=== PATIENT | female | born 1955 | race Caucasian/White ===

== ENCOUNTER 2023-10-30 22:45 | Emergency (ER) | payer MEDICARE, OTHER, SELFPAY ==
[2023-10-30 22:46] VITALS: BP 140/75; PULSE 54; RESP 18; TEMP 36.4; O2SAT 97; BMI 27.9
--- NOTE | 2023-10-30 23:07 | EDS_ITS ---
HPI History of Present Illness Chief Complaint: Wound Check Informant: patient Narrative Narrative: 67-year-old female states she is having mild bleeding from her right nipple, it has been going on all day today and will not stop. She is on no blood thinners. She states this happened a couple weeks ago and stopped on its own and now it is recurrent. The nipple itself is a little sore but she has no pain elsewhere or redness or systemic symptoms or fevers. No history of breast cancer that she knows of. Gets by annual mammogram the last one was in March 2022. 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 She already made an appointment with her drafter automotive design layout to be seen after the weekend. PFSH PFSH Home Medications ?Medication ?Instructions ?Recorded ?Last Taken ?Type aspirin 81 mg capsule 81 mg PO DAILY 10/30/23 Unknown History cholecalciferol (vitamin D3) 25 1,000 unit PO DAILY 10/30/23 Unknown History mcg (1,000 unit) capsule (Vitamin D3) Allergy/AdvReac Type Severity Reaction Status Date / Time No Known Allergies Allergy Verified 10/30/23 22:48 Surgical History History of appendectomy History of cholecystectomy Social History Smoking Status: Former smoker ROS ROS ED Constitutional Constitutional ED: Denies chills or fever(s) Respiratory/Chest Respiratory/Chest: Denies dyspnea Genitourinary Genitourinary ED: Reports other Details: See HPI. Bleeding and soreness from right nipple. No other breast symptoms. Nothing on the left. Integumentary Denies abscess or rash EXAM Physical Exam Const Vital Signs: 10/30/23 22:46 Temperature 97.5 F L Temperature Source Temporal Pulse Rate 54 L Respiratory Rate 18 Blood Pressure 140/75 H Blood Pressure Mean 96 Pulse Ox 97 Oxygen Delivery Method Room Air Positive well nourished and well developed General Appearance ED: well developed and NAD HEENT Reports moist mucous membranes Eyes PERRL and EOMs intact bilaterally Chest Wall Chest Narrative: Examined with nurse development scientist. Right breast is normal-appearing except for small amount of blood present from a pinpoint sized normal area in the right nipple, assuming it is coming from a duct. Subjectively sore to examine at the nipple only but otherwise normal-appearing. Normal areola without tenderness or rash or erythema. Normal rest of the breast without any erythema, induration, peau d'orange appearance, or other skin abnormalities. No palpable lumps or masses throughout the breast. No other areas of tenderness. No palpable axillary lymphadenopathy. Extremity normal to inspection Neuro oriented x3, CN's II-XII intact bilaterally, no sensory deficits noted and gait normal Motor Exam: strength 5/5 throughout Psych mental status grossly normal Skin no rashes or lesions noted Skin Narrative: Including right breast; no lesions or rashes or signs of erythema. MDM MDM MDM Narrative Medical decision making narrative: There is no evidence of mastitis here clinically. It looks like the bleeding is coming from the duct and the nipple. I discussed with the patient I do not think there is infection which was her primary concern here. She understands the possibility of a cyst or mass or cancer within the breast that could be causing bleeding into the mammary duct system which I suspect is why it is trickling blood today and does not want to stop. She is not having any dangerous bleeding. She shows me some tissues that is just dotted with small amount of blood that she was using. I do not feel any lumps or masses but she understands that that I do not often check female breast for masses or cancer and that she would be best served following up with her drafter automotive design layout soon as possible with whom she has an appointment in less than 1 week. She is not from this area, I offered her an ultrasound that I could help set up as an outpatient, I do not have ultrasound present right now to perform imaging or mammogram on this, she declines and states she would prefer to follow-up with her [employer] so she is less likely to have to pay for the test out right. We discussed signs and symptoms of mastitis and reasons to return, but at this time I see no indication for systemic antibiotics. Since she only has mild subjective tenderness at the a site of the bleeding at the nipple, I recommend gauze dressing changes along with some topical antibiotic ointment to prevent infection or treat a superficial infection but again I see no evidence of anything that needs systemic antibiotics at this time. We discussed this in real-time and she is in agreement with all of that. Discharge Plan Triage Chief Complaint: Wound Check ED Provider: Blake Mcknight Dx/Rx/DC Orders Clinical Impression: Bleeding from nipple in female Instructions: ED Wound Check (No Infection) Primary Care Provider: Jonas Doctor,Out of Referrals: [facility] Doctor,Out of [Primary Care Provider] - As soon as possible (your drafter automotive design layout) Activity Restrictions/Additional Instructions: gauze dressing changes as needed; reasonable to put triple antibiotic ointment against the area to keep infection out, but no breast infection (mastitis) or abscess present now. return to ER if you start seeing redness in the breast. Print Language: Bengali Disposition Disposition: Home, Self Care
== END 2023-10-30 23:21 | disposition home or self-care (01) ==
LOC: ED 23:18
PROVIDERS: Emergency Provider Emergency Medicine; Visit Provider Emergency Medicine
DX: N64.59 Other signs and symptoms in breast (principal); Z87.891 Personal history of nicotine dependence; Z79.82 Long term (current) use of aspirin
CPT/HCPCS: 99282